=== PATIENT | female | born 1995 | race African-American/Black ===

== ENCOUNTER 2016-11-05 22:18 | Emergency (ER) | payer SELFPAY ==
[2016-11-05] MEDS ORDERED: Acetaminophen 500 MG TAB ONE (22:42)
--- NOTE | 2016-11-06 00:09 | RAD ---
TWO VIEWS CHEST: Date: 11-05-16 History: Flu like symptoms with cough and congestion. FINDINGS: No pneumothorax, pleural effusion, lobar consolidation, or alveolar edema. Heart and mediastinal contours unremarkable. IMPRESSION: No acute findings. POS: [facility]
--- NOTE | 2016-11-06 00:27 | ERRECORD ---
[facility] EMERGENCY RECORD HPI FLU-LIKE SYNDROME (22:40 JROB) CHIEF COMPLAINT: Patient presents for evaluation of fever, Patient presents for evaluation of upper respiratory infection. HISTORIAN: History provided by patient, 21 year old female presents with flu like symptoms x 2 days, with cough, congestion, body aches. Had vomiting 2 days ago. Today started with nosebleed. QUALITY: aching. SEVERITY: Current severity of pain rated as 8/10. TIME COURSE: Gradual onset of symptoms, Symptoms are worsening. ASSOCIATED WITH: Associated with chest pain, Associated with cough, Associated with diarrhea, Associated with headache, Associated with vomiting, Associated with shortness of breath, No associated urinary tract infection signs or symptoms. EXACERBATED BY: Patient's condition exacerbated by swallowing. RELIEVED BY: Patient's condition relieved by nothing. PAST MEDICAL HISTORY (22:26 EPIE) MEDICAL HISTORY: No past medical history, Flu vaccine not up to date, Tetanus immunization up to date, Pneumococcal vaccine not up to date,. FEMALE SURGICAL HISTORY: Patient has no surgical history. PSYCHIATRIC HISTORY: No previous psychiatric history. SOCIAL HISTORY: Patient drinks socially, Patient has no smoking history, Patient denies drug use. KNOWN ALLERGIES No Known Drug Allergies CURRENT MEDICATIONS (22:24 EPIE) None VITAL SIGNS VITAL SIGNS: BP: 154/81, Pulse: 82, Resp: 18 (Non-Labored), Temp: 98.4 (Oral), Pain: 8, O2 sat: 96 on Room Air, Time: 11/05/2016 22:24. (22:24 EPIE) BP: 133/79, Pulse: 86, Resp: 18 (Non-Labored), Temp: 98.3 (Oral), Pain: 6, O2 sat: 97 on Room Air, Time: 11/06/2016 00:03. (SunNov 06, 2016 00:03 EPIE) RADIOLOGYINTERPRETATION (SunNov 06, 2016 00:01 JROB) CHEST: Chest films negative, no infiltrates, no effusion. BOX COVERER HAND: Preliminary review of x-rays by, Radiologist. MEDICATION ADMINISTRATION SUMMARY Drug Name: Tylenol Extra Strength, Dose Ordered: 1 g, Route: Oral, Status: Given, Time: 22:46 11/05/2016, Detailed record available in &a-1R&a+25V*p+0X*i3516R*c202B*c15G*c2P*p-0X&a-25V&a+1R Name: Keely Mustafa : 1995 F21 MedRec: [id number] AcctNum: [id number] Prepared: SunNov 06, 2016 00:19 by Interface Page 1 of 2 pMD [facility] EMERGENCY RECORD Medication Service section. DOCTOR NOTES (SunNov 06, 2016 00:01 JROB) TEXT: CXR and flu negative. Discussed with patient. She likely has a viral infection. Nosebleed has stopped. Discussed managements of nosebleeds if it recurs. Will d/c home to follow up in clinic. PATIENT STATUS: Patient has improved since arrival to emergency department. PATIENT PLAN: The patient will be discharged, The patient will follow up with primary care physician. DATA REVIEWED: Lab data reviewed, Xray data reviewed. PROBLEM LIST No recorded problems DIAGNOSIS DIFFERENTIAL: Based on history, exam and ancillary studies if indicated: Impression: fever, Impression: viral URI, Impression: influenza, Impression: pneumonia, Diagnoses considered are not limited to those documented above. (SunNov 06, 2016 00:02 JROB) FINAL: PRIMARY: Viral infection, ADDITIONAL: EPISTAXIS. (SunNov 06, 2016 00:03 JROB) PRESCRIPTION No recorded prescriptions DISPOSITION PATIENT: Disposition Type: Discharge, Disposition: *Discharge Home. (SunNov 06, 2016 00:03 JROB) Patient left the department. (SunNov 06, 2016 00:14 ACE) Romero: EPIE=RAJAT Da Silva, Keisha JROB=MD Robin, Jose &a-1R&a+25V*p+0X*[id number]*c202B*c15G*c2P*p-0X&a-25V&a+1R Name: Keely Mustafa : 1995 F21 MedRec: [id number] AcctNum: [id number] Prepared: SunNov 06, 2016 00:19 by Interface Page 2 of 2 pMD MTDD
--- NOTE | 2016-11-06 00:33 | PICIS ---
[facility] EMERGENCY RECORD TRIAGE (SunNov 05, 2016 22:24 EPIE) TRIAGE NOTES: Pt states that she has not been feeling good since Sunday. States she has had a blood nose starting today. States she has had body aches, congestion, sore throat fever, reports vomiting on Sunday. (SunNov 05, 2016 22:24 EPIE) PATIENT: NAME: Keely Mustafa, AGE: 21, GENDER: female, : [facility] 1995, TIME OF GREET: SunNov 05, 2016 22:19, PREFERRED LANGUAGE: Sami, ETHNICITY: Not or , ECODE BILLING MAP: [facility], SSN: [id number], Zip Code: [address], KG WEIGHT: [phone], PHONE: , , , PERSON ID: [id number], PCP: [facility]. (SunNov 05, 2016 22:24 EPIE) COMPLAINT: FLU SYMPTOMS. (SunNov 05, 2016 22:24 EPIE) ADMISSION: URGENCY: 4 Non Urgent, ADMISSION SOURCE: Home, TRANSPORT: CAR, BED: TRIAGE. (SunNov 05, 2016 22:24 EPIE) TRIAGE SCREENING: Patient denies suicidal ideation, Patient denies presence of domestic violence. (22:26 EPIE) TREATMENTS IN PROGRESS: Treatments given Prehospital: none. (22:26 EPIE) PROVIDERS: TRIAGE NURSE: Keisha Da Silva RN. (SunNov 05, 2016 22:24 EPIE) VITAL SIGNS: BP 154/81, Pulse 82, Resp 18, (Non-Labored), Temp 98.4, (Oral), Pain 8, O2 Sat 96, on Room Air, Time 11/05/2016 22:24. (22:24 EPIE) PREVIOUS VISIT ALLERGIES: No Known Drug Allergies. (SunNov 05, 2016 22:24 EPIE) No Known Drug Allergies. (22:26 EPIE) KNOWN ALLERGIES No Known Drug Allergies CURRENT MEDICATIONS (22:24 EPIE) None VITAL SIGNS VITAL SIGNS: BP: 154/81, Pulse: 82, Resp: 18 (Non-Labored), Temp: 98.4 (Oral), Pain: 8, O2 sat: 96 on Room Air, Time: 11/05/2016 22:24. (22:24 EPIE) BP: 133/79, Pulse: 86, Resp: 18 (Non-Labored), Temp: 98.3 (Oral), Pain: 6, O2 sat: 97 on Room Air, Time: 11/06/2016 00:03. (SunNov 06, 2016 00:03 EPIE) NURSING ASSESSMENT: HEAD-TO-TOE (22:36 EPIE) CONSTITUTIONAL: Patient arrives ambulatory, Gait steady, History obtained from patient, Patient appears, uncomfortable, Patient cooperative, Patient alert, Oriented to person, place and time, Skin warm, Skin dry, Skin normal in color, Mucous membranes pink, Mucous membranes moist, Patient is well-groomed, Pt states that she has not been feeling good since Sunday. States she has had a blood nose starting today. States she has had body aches, congestion, &a-1R&a+25V*p+0X*s7794U*c202B*c15G*c2P*p-0X&a-25V&a+1R Name: Keely Mustafa : 1995 F21 MedRec: [id number] AcctNum: [id number] Prepared: SunNov 06, 2016 00:25 by Interface Page 1 of 6 pMD [facility] EMERGENCY RECORD sore throat fever, reports vomiting on Sunday. PAIN: aching pain, diffuse body, Onset of pain 11/03/2016, on a scale 0-10 patient rates pain as 8. SKIN: Skin assessment findings include skin warm, Skin dry, Skin normal in color. ENT: Nasal assessment findings include nose normal to inspection, Sinuses normal, Nasal mucosa normal, Bleeding, small amount, from the left nare, controlled, Congestion, bilaterally, Mouth and throat assessment findings include mouth inspection normal, Uvula normal, Tonsils normal, Mucous membranes pink, and moist, Able to swallow, Speech normal, Associated with fever. RESPIRATORY/CHEST: Breath sounds clear, Respiratory assessment findings include respiratory effort easy, Respirations regular, Conversing normally, Neck and chest exam findings include trachea midline, Chest expansion equal, Chest movement symmetrical, Associated with cough, Associated with fever. CARDIOVASCULAR: Cardiovascular assessment findings include heart rate normal, Heart sounds normal, S1, S2. ABDOMEN: Abdomen assessment findings include abdomen symmetrical, Abdomen soft, Associated with nausea, Associated with vomiting, history of vomiting, Associated with diarrhea. NURSING PROCEDURE: DISCHARGE NOTE (SunNov 06, 2016 00:13 EPIE) DISCHARGE: Patient discharged to home, ambulating without assistance, friend driving, accompanied by friend, Summary of Care printed/ provided, Discharge instructions given to patient, Simple or moderate discharge teaching performed, Above person(s) verbalized understanding of discharge instructions and follow-up care. BELONGINGS: Belongings and valuables with patient upon arrival to the Emergency Department include:, Belongings and valuables with patient at time of discharge include:, Belongings remain with patient, Valuables remain with patient. NURSING PROCEDURE: ENT (22:46 EPIE) PATIENT IDENTIFIER: Patient actively involved in identification process, Patient's identity verified by patient stating name, Patient's identity verified by hospital ID bracelet. ENT: Nasal swab collected, labeled in the presence of the patient and sent to lab for testing of, influenza A, influenza B. FOLLOW-UP: After procedure, no further bleeding from nose. NURSING PROCEDURE: NURSE NOTES NURSES NOTES: Notes: ERMD placing device he made on exterior nose to help hold pressure on the nose. (22:35 EPIE) Notes: Pt was masked by registration prior to entering the ED. (22:24 EPIE) Notes: Patient resting with friend at bedside. RR even and &a-1R&a+25V*p+0X*z8110A*c202B*c15G*c2P*p-0X&a-25V&a+1R Name: Keely Mustafa : 1995 F21 MedRec: [id number] AcctNum: [id number] Prepared: SunNov 06, 2016 00:25 by Interface Page 2 of 6 pMD [facility] EMERGENCY RECORD unlabored. No new complaints at this time. Awaiting ERMD to talk with patient. (23:44 EPIE) NURSING PROCEDURE: TRANSPORT TO TESTS PATIENT IDENTIFIER: Patient actively involved in identification process, Patient's identity verified by patient stating name, Patient's identity verified by hospital ID bracelet. (23:12 EPIE) TRANSPORT TO TESTS: Patient transported to x-ray, via cart, Accompanied by x-ray patient service technician pst. (23:12 EPIE) FOLLOW-UP: After procedure, patient returned to emergency department. (23:17 EPIE) ORDER DETAILS Order Name: Influenza A&B Ag Screen, Status: Active, Time: 22:40 11/05/2016, User: CESAR, - Ordered for: MD Kelly Joseph, - Entered by: MD Kelly Joseph - Sun Nov 05, 2016 22:40, - Quantity: 1, Order Name: XR Chest Pa & Lat STANDARD, Status: Active, Time: 22:40 11/05/2016, User: CESAR, - Ordered for: MD Kelly Joseph, - Entered by: MD Kelly Joseph - Sun Nov 05, 2016 22:40, - Quantity: 1. MEDICATION ADMINISTRATION SUMMARY Drug Name: Tylenol Extra Strength, Dose Ordered: 1 g, Route: Oral, Status: Given, Time: 22:46 11/05/2016, Detailed record available in Medication Service section. MEDICATION SERVICE (22:46 JROB) Tylenol Extra Strength: Order: Tylenol Extra Strength (acetaminophen) - Dose: 1 g : Oral Schedule: Now Ordered by: Jose Kelly MD Entered by: MD Radha Arias Nov 05, 2016 22:39 , Acknowledged by: RAJAT Graham Nov 05, 2016 22:41 Documented as given by: RAJAT Graahm Nov 05, 2016 22:46 Patient, Medication, Dose, Route and Time verified prior to administration. Amount given: 1g, Site: Medication administered P.O., Correct patient, time, route, dose and medication confirmed prior to administration, Patient advised of actions and side-effects prior to administration, Allergies confirmed and medications reviewed prior to administration. HPI FLU-LIKE SYNDROME (22:40 JROB) CHIEF COMPLAINT: Patient presents for evaluation of fever, Patient presents for evaluation of upper respiratory &a-1R&a+25V*p+0X*w0131H*c202B*c15G*c2P*p-0X&a-25V&a+1R Name: Keely Mustafa : 1995 F21 MedRec: [id number] AcctNum: [id number] Prepared: SunNov 06, 2016 00:25 by Interface Page 3 of 6 D [facility] EMERGENCY RECORD infection. HISTORIAN: History provided by patient, 21 year old female presents with flu like symptoms x 2 days, with cough, congestion, body aches. Had vomiting 2 days ago. Today started with nosebleed. QUALITY: aching. SEVERITY: Current severity of pain rated as 8/10. TIME COURSE: Gradual onset of symptoms, Symptoms are worsening. ASSOCIATED WITH: Associated with chest pain, Associated with cough, Associated with diarrhea, Associated with headache, Associated with vomiting, Associated with shortness of breath, No associated urinary tract infection signs or symptoms. EXACERBATED BY: Patient's condition exacerbated by swallowing. RELIEVED BY: Patient's condition relieved by nothing. PAST MEDICAL HISTORY (22:26 EPIE) MEDICAL HISTORY: No past medical history, Flu vaccine not up to date, Tetanus immunization up to date, Pneumococcal vaccine not up to date,. FEMALE SURGICAL HISTORY: Patient has no surgical history. PSYCHIATRIC HISTORY: No previous psychiatric history. SOCIAL HISTORY: Patient drinks socially, Patient has no smoking history, Patient denies drug use. LAB INTERPRETATION (SunNov 06, 2016 00:01 JROB) INTERPRETATION: I reviewed the lab results, Rapid strep negative, Influenza negative. EVENTS TRANSFER: Triage to Emergency Triage. (SunNov 05, 2016 22:24 EPIE) Emergency Triage to Emergency Room -02. (22:24 EPIE) Removed from Emergency Emergency Room -02. (SunNov 06, 2016 00:14 EPIE) RADIOLOGYINTERPRETATION (SunNov 06, 2016 00:01 JROB) CHEST: Chest films negative, no infiltrates, no effusion. DONOR RELATIONS ASSOCIATE: Preliminary review of x-rays by, Radiologist. DOCTOR NOTES (SunNov 06, 2016 00:01 JROB) TEXT: CXR and flu negative. Discussed with patient. She likely has a viral infection. Nosebleed has stopped. Discussed managements of nosebleeds if it recurs. Will d/c home to follow up in clinic. PATIENT STATUS: Patient has improved since arrival to emergency department. PATIENT PLAN: The patient will be discharged, The patient will follow up with primary care physician. DATA REVIEWED: Lab data reviewed, Xray data reviewed. &a-1R&a+25V*p+0X*m3879G*c202B*c15G*c2P*p-0X&a-25V&a+1R Name: Keely Mustafa Kassy : 1995 F21 MedRec: [id number] AcctNum: [id number] Prepared: SunNov 06, 2016 00:25 by Interface Page 4 of 6 pMD [facility] EMERGENCY RECORD PROBLEM LIST No recorded problems DIAGNOSIS DIFFERENTIAL: Based on history, exam and ancillary studies if indicated: Impression: fever, Impression: viral URI, Impression: influenza, Impression: pneumonia, Diagnoses considered are not limited to those documented above. (SunNov 06, 2016 00:02 JROB) FINAL: PRIMARY: Viral infection, ADDITIONAL: EPISTAXIS. (SunNov 06, 2016 00:03 JROB) DISPOSITION PATIENT: Disposition Type: Discharge, Disposition: *Discharge Home. (SunNov 06, 2016 00:03 JROB) Patient left the department. (SunNov 06, 2016 00:14 EPIE) INSTRUCTION (SunNov 06, 2016 00:03 JROB) DISCHARGE: VIRAL SYNDROME (ADULT), EPISTAXIS (ADULT). FOLLOWUP: Follow up with Primary Care Physician in 5 days. SPECIAL: Follow-up with your PCP We hope you feel better soon! We are always happy to take care of you and your family! Return to the ER immediately for any new, concerning, or worsening symptoms. PRESCRIPTION No recorded prescriptions IMAGING (SunNov 06, 2016 00:14 EPIE) *DISCHARGE INSTRUCTIONS RECEIPT: Image captured from scanner. *SUPPLY CHARGE SHEET: Image captured from scanner. ADMIN (SunNov 06, 2016 00:04 JROB) DIGITAL SIGNATURE: MD Kelly Joseph. RESULTS (23:33 JROB) MICROBIOLOGY: Influenza A&B Ag Screen: [id number] Collection DT: Radha Nov 05, 2016 22:49, See comment below , @ ER ROOM#: [id number] Source: Nasal swab Spec Desc: , Influenza A Antigen: NEGATIVE for the , presence of , INFLUENZA A Antigen , Influenza B Antigen: NEGATIVE for the , presence of , INFLUENZA B Antigen , The rapid Flu A&B test can distinguish between influenza A , Influenza A&B Ag Screen See comment below , and B viruses, but it does not differentiate influenza , &a-1R&a+25V*p+0X*d6407W*c202B*c15G*c2P*p-0X&a-25V&a+1R Name: Keely Mustafa : 1995 F21 MedRec: [id number] AcctNum: [id number] Prepared: SunNov 06, 2016 00:25 by Interface Page 5 of 6 pMD [facility] EMERGENCY RECORD Influenza A&B Ag Screen See comment below , subtypes. , Influenza A&B Ag Screen See comment below , Influenza A&B Ag Screen See comment below , Influenza A&B Ag Screen See comment below , Influenza A&B Ag Screen See comment below , characteristics of this device with human specimens infected , Influenza A&B Ag Screen See comment below , with the 2008 H1N1 influenza virus have not been , Influenza A&B Ag Screen See comment below , established. For example: this test cannot distinguish , Influenza A&B Ag Screen See comment below , influenza infections caused by novel H1N1 influenza A , Influenza A&B Ag Screen See comment below , viruses versus seasonal influenza A viruses. , Influenza A&B Ag Screen See comment below , , Influenza A&B Ag Screen See comment below , A negative result does not exclude influenza virus , Influenza A&B Ag Screen See comment below , infection; therefore, if more conclusive testing is desired, , Influenza A&B Ag Screen See comment below , follow up confirmatory testing is warranted., Influenza A&B Ag Screen See comment below . Romero: EPIE=RAJAT Da Silva, Keisha TORIBIOOB=MD Robin, Jose &a-1R&a+25V*p+0X*j5477M*c202B*c15G*c2P*p-0X&a-25V&a+1R Name: Keely Mustafa : 1995 F21 MedRec: [id number] AcctNum: [id number] Prepared: SunNov 06, 2016 00:25 by Interface Page 6 of 6 pMD MTDD
== END 2016-11-06 00:13 | disposition home or self-care (01) ==
LOC: NAV ERS 22:18
DX: B34.9 Viral infection, unspecified (principal); R04.0 Epistaxis
CPT/HCPCS: 71020; 99283

== ENCOUNTER 2020-08-08 08:24 | Emergency (ER) | payer OTHER, SELFPAY ==
--- NOTE | 2020-08-08 10:45 | RAD ---
PORTABLE CHEST: HISTORY: Cough. COMPARISON: 12/30/2019 exam. FINDINGS: Heart size and mediastinum are within normal limits. I do not see any evidence of any definite infil trative lung process. IMPRESSION: No active intrathoracic disease. POS: OFF
[2020-08-09 14:00] LABS: SARS-CoV-2 MS2 Positive; SARS-CoV-2 N Gene Negative; SARS-CoV-2 S Gene Negative; SARS-CoV-2 by NAA Not Detected (NotDetected); SARS-CoV-2 orf1ab Negative
== END 2020-08-08 09:33 | disposition home or self-care (01) ==
LOC: NAV ERS 08:24
DX: J06.9 Acute upper respiratory infection, unspecified (principal); Z20.828 Contact with and (suspected) exposure to other viral communicable diseases; I10 Essential (primary) hypertension
CPT/HCPCS: 71045; 87635; U0003

== ENCOUNTER 2021-01-26 19:20 | Emergency (ER) | payer OTHER, SELFPAY ==
[2021-01-26 19:34] LABS: Bilirubin Negative (Negative); Blood, Urine Negative (Negative); Clarity Clear (Clear); Glucose, Urine (Dipstick) Negative (Negative); Ketone, Urine Negative (Negative); Leukocyte Negative (Negative); Nitrite Negative (Negative); Protein, Urine (Dipstick) Negative (Neg-Trace); Urobilinogen 0.2 mg/dL (Less than 2)
[2021-01-26 19:43] LABS: #Basophils 0.1 thou/uL (0.0-0.2); #Eosinphils 0.1 thou/uL (0.0-0.7); #Lymphocytes 2.2 thou/uL (1.20-3.40); #Monocytes 0.5 thou/uL (0.11-0.59); #Neutrophils 7.1 thou/uL (1.40-6.50); %Basophils 0.8 % (0.0-1.0); %Eosinophils 1.1 % (0.0-10.0); %Lymphocytes 22.1 % (21.0-51.0); %Monocytes 4.7 % (0.0-10.0); %Neutrophils 71.3 % (42.0-75.0); Hemoglobin 12.5 g/dL (12.0-16.0); Mean Corpuscular HGB CONC 34.2 g/dL (32.0-36.0); Mean Corpuscular Hemoglobin 30.2 pg (27.0-31.0); Mean Corpuscular Volume 88.4 fL (78.0-98.0); Mean Platelet Volume 7.7 fL (7.4-10.4); Platelet Count 266 thou/uL (130-400); RBC Distribution Width 11.2 % (11.5-14.5); Red Blood Cell (RBC) Count 4.14 mill/uL (4.20-5.40)
[2021-01-26 19:57] LABS: ALT (SGPT) 16 U/L (8-55); AST (SGOT) 16 U/L (5-34); Albumin 3.5 g/dL (3.5-5.0); Alkaline Phosphatase 74 U/L (40-110); Anion Gap 13 mmol/L (10-20); BUN (Urea Nitrogen) 6 mg/dL (7.0-18.7); Bilirubin, Total 0.3 mg/dL (0.2-1.2); Calc. Creatinine Clearance 0 mL/min (70-130); Calcium 8.9 mg/dL (7.8-10.44); Carbon Dioxide 21 mmol/L (22-29); Chloride 105 mmol/L (98-107); Globulin 3.2 g/dL (2.4-3.5); Glucose 102 mg/dL (70-105); Potassium 3.5 mmol/L (3.5-5.1); Protein, Total 6.7 g/dL (6.0-8.3); Sodium 135 mmol/L (136-145)
[2021-01-26] MEDS ORDERED: Sodium Chloride 0.9% 1,000 ML ONE (19:57)
== END 2021-01-26 20:31 | disposition home or self-care (01) ==
LOC: NAV ERS 19:20
DX: O99.891 Other specified diseases and conditions complicating pregnancy (principal); R10.30 Lower abdominal pain, unspecified; O13.2 Gestational [pregnancy-induced] hypertension without significant proteinuria, second trimester; Z79.82 Long term (current) use of aspirin; Z79.899 Other long term (current) drug therapy; Z3A.19 19 weeks gestation of pregnancy
CPT/HCPCS: 80053; 81003; 85025; J7050

== ENCOUNTER 2022-03-05 16:15 | Emergency (ER) | payer OTHER ==
[2022-03-05] MEDS ORDERED: methylPREDNISolone Acetate 40 mg/ml Vial ONE (17:10)
== END 2022-03-05 17:20 | disposition home or self-care (01) ==
LOC: NAV ERS 16:15
DX: J45.901 Unspecified asthma with (acute) exacerbation (principal); I10 Essential (primary) hypertension; Z79.899 Other long term (current) drug therapy
CPT/HCPCS: 94640; 96372; 99284; J2920; J7620

== ENCOUNTER 2022-07-18 12:12 | Emergency (ER) | payer OTHER ==
[2022-07-18] MEDS ORDERED: methylPREDNISolone Sod Succ/PF 125 MG/2 ML VIAL ONE (12:40)
[2022-07-18 13:03] LABS: Bilirubin Negative (Negative); Blood, Urine Trace (Negative); Glucose, Urine (Dipstick) Negative (Negative); Ketone, Urine Negative (Negative); Leukocyte Negative (Negative); Nitrite Negative (Negative); Protein, Urine (Dipstick) Negative (Neg-Trace); Urobilinogen 0.2 mg/dL (Less than 2); pH, Urine 6.5 (5.0-9.0)
[2022-07-18 13:05] LABS: Clarity Hazy (Clear)
[2022-07-18 13:08] LABS: #Basophils 0.1 thou/uL (0.0-0.2); #Eosinphils 0.4 thou/uL (0.0-0.7); #Lymphocytes 2.8 thou/uL (1.20-3.40); #Monocytes 0.5 thou/uL (0.11-0.59); #Neutrophils 7.1 thou/uL (1.40-6.50); %Basophils 0.8 % (0.0-1.0); %Eosinophils 3.5 % (0.0-10.0); %Lymphocytes 25.8 % (21.0-51.0); %Monocytes 4.3 % (0.0-10.0); %Neutrophils 65.8 % (42.0-75.0); Hemoglobin 14.5 g/dL (12.0-16.0); Mean Corpuscular Volume 90.2 fL (78.0-98.0); Platelet Count 330 thou/uL (130-400); RBC Distribution Width 12.4 % (11.5-14.5); Red Blood Cell (RBC) Count 5.19 mill/uL (4.20-5.40); White Blood Cell (WBC) Count 10.8 thou/uL (4.8-10.8)
[2022-07-18 13:10] LABS: Specific Gravity, Urine 1.024 (1.002-1.036)
[2022-07-18 13:11] LABS: Bacteria/HPF Rare-Few HPF (None Seen); RBC/HPF 0-3 HPF (0-3)
[2022-07-18 13:14] LABS: Pregnancy Test - Urine (BHCG) Negative (Negative); Pregu Control Background? CLEAR/WHITE (CLR/WHITE); Pregu Control Bar Appear? YES (CONTROL BAR); Specific Gravity 1.024 (1.002-1.036)
[2022-07-18 13:21] LABS: ALT (SGPT) 16 U/L (8-55); AST (SGOT) 15 U/L (5-34); Alkaline Phosphatase 105 U/L (40-110); Anion Gap 16 mmol/L (10-20); BUN (Urea Nitrogen) 6 mg/dL (7.0-18.7); Bilirubin, Total 0.5 mg/dL (0.2-1.2); Calc. Creatinine Clearance 0 mL/min (70-130); Calcium 8.9 mg/dL (7.8-10.44); Carbon Dioxide 19 mmol/L (22-29); Chloride 107 mmol/L (98-107); Estimated GFR 115; Globulin 3.3 g/dL (2.4-3.5); Potassium 3.7 mmol/L (3.5-5.1); Protein, Total 7.3 g/dL (6.0-8.3); Sodium 138 mmol/L (136-145)
[2022-07-18 13:22] LABS: Glucose 92 mg/dL (70-105)
== END 2022-07-18 14:00 | disposition home or self-care (01) ==
LOC: NAV ERS 12:12
DX: J45.901 Unspecified asthma with (acute) exacerbation (principal); Z20.822 Contact with and (suspected) exposure to COVID-19; I10 Essential (primary) hypertension; Z79.899 Other long term (current) drug therapy
CPT/HCPCS: 71045; 80053; 81003; 81015; 81025; 83605; 83880; 84484; 85025; 87804; 93005; 94760; 96374; J2930; J7620; U0003; U0005

== ENCOUNTER 2022-11-02 12:12 | Emergency (ER) | payer OTHER | END 2022-11-02 14:12 | disposition home or self-care (01) | LOC: NAV ERS 12:12 | DX: J45.901 Unspecified asthma with (acute) exacerbation (principal); J06.9 Acute upper respiratory infection, unspecified; I10 Essential (primary) hypertension; Z20.822 Contact with and (suspected) exposure to COVID-19; Z79.899 Other long term (current) drug therapy | CPT/HCPCS: 87804; 87807; 94640; J7620; U0003; U0005 ==

== ENCOUNTER 2022-12-18 12:02 | Emergency (ER) | payer OTHER ==
[2022-12-18 12:26] LABS: Bilirubin Negative (Negative); Blood, Urine Negative (Negative); Clarity Clear (Clear); Glucose, Urine (Dipstick) Negative (Negative); Ketone, Urine Negative (Negative); Leukocyte Negative (Negative); Nitrite Negative (Negative); Protein, Urine (Dipstick) Negative (Neg-Trace); Specific Gravity, Urine 1.025 (1.005-1.030); Urobilinogen 0.2 mg/dL (Less than 2); pH, Urine 6.5 (5.0-9.0)
[2022-12-18] MEDS ORDERED: cefTRIAXone\\ROCEPHIN 500 MG VIAL ONE (13:09)
[2022-12-19 11:26] LABS: Chlam.trachomatis by PCR,Urine Not Detected (NotDetected); GC N.gonorrhoeae PCR,UrineVOID Not Detected (NotDetected)
== END 2022-12-18 13:36 | disposition home or self-care (01) ==
LOC: NAV ERS 12:02
DX: R30.0 Dysuria (principal); J45.909 Unspecified asthma, uncomplicated; I10 Essential (primary) hypertension; Z79.899 Other long term (current) drug therapy
CPT/HCPCS: 81003; 87491; 87591; 96372; 99283; J0696